=== PATIENT | female | born 1970 | race African-American/Black ===

== ENCOUNTER 2019-02-10 17:15 | Emergency (ER) | payer OTHER, MEDICAID ==
[~2019-02-10] VITALS: Ht 180.3 cm; Wt 132.0 kg
[2019-02-10] MEDS ORDERED: KETOROLAC 15MG/ML VIAL IM ONE (20:00)
[2019-02-10] MEDS ORDERED: HYDROCODONE/ACETAMINOPHEN 5/325MG TABLET PO ONE (21:30)
[2019-02-10 21:37] VITALS: BP 142/81
== END 2019-02-10 21:51 | disposition home or self-care (01) ==
LOC: ER 17:15
DX: M79.641 Pain in right hand (principal); M25.521 Pain in right elbow; M25.511 Pain in right shoulder; M79.631 Pain in right forearm; Z90.49 Acquired absence of other specified parts of digestive tract; Z98.890 Other specified postprocedural states
CPT/HCPCS: 73030; 73080; 73090; 73130; 96372; 99283; J1885